=== PATIENT | male | born 1950 | race African-American/Black ===

== ENCOUNTER 2022-05-31 11:03 | Observation (INO) | payer MEDICARE, BC ==
[2022-05-31 12:07] LABS: #Monocytes 0.3 10x3/uL (0.0-1.1); #Neutrophils 3.6 10x3/uL (1.5-8.4); %Basophils 0.4 % (0.0-2.0); %Eosinophils 0.8 % (0.0-6.0); %Lymphocytes 16.1 % (18.0-47.0); %Monocytes 6.4 % (0.0-10.0); %Neutrophils 75.9 % (40.0-75.0); Hemoglobin 11.7 g/dL (13.5-17.5); Mean Corpuscular Hemoglobin 32.1 pg (27.0-33.0); Mean Corpuscular Volume 100.3 fl (81.2-95.1); Mean Platelet Volume 10.6 fl (7.4-10.4); Platelet Count 154 10x3/uL (150-450); RBC Distribution Width 15.3 % (11.5-14.5); Red Blood Cell (RBC) Count 3.65 10x6/uL (4.32-5.72); White Blood Cell (WBC) Count 4.7 10x3/uL (3.5-10.5)
[2022-05-31 12:25] LABS: ALT (SGPT) 52 U/L (8-55); AST (SGOT) 54 U/L (5-34); Albumin 3.3 g/dL (3.4-4.8); Alkaline Phosphatase 107 U/L (40-110); Anion Gap 24 mmol/L (10-20); BUN (Urea Nitrogen) 53 mg/dL (8.4-25.7); Bilirubin, Total 0.8 mg/dL (0.2-1.2); Calc. Creatinine Clearance 0 mL/min (70-130); Calcium 7.1 mg/dL (7.8-10.44); Carbon Dioxide 23 mmol/L (23-31); Chloride 91 mmol/L (98-107); Estimated GFR 2; Globulin 3.1 g/dL (2.4-3.5); Glucose 188 mg/dL (83-110); Lipase 129 U/L (8-78); Potassium 3.6 mmol/L (3.5-5.1); Protein, Total 6.4 g/dL (5.8-8.1); Sodium 134 mmol/L (136-145)
[2022-05-31] MEDS ORDERED: Cefepime 2 GM VIAL ONE (12:33)
[2022-05-31 12:43] LABS: CKMB 1.6 ng/mL (0-6.6)
[2022-05-31] MEDS ORDERED: NOREPINEPHRINE 8 MG/250 ML-D5W 0 ML ONE (13:23)
[2022-05-31 15:27] LABS: Lactic Acid 1.3 mmol/L (0.5-2.2)
[2022-05-31 16:02] LABS: BF Color Colorless; Body Fluid Source Peritoneal Fluid; Clarity Clear (Clear); Tube # 1
[2022-05-31] MEDS ORDERED: HumaLOG 300 UNITS/3 ML VIAL SC PRN ×2 (16:34)
[2022-05-31] MEDS ORDERED: Dextrose 5% in Water 1,000 ML IV PRN (16:34)
[2022-05-31] MEDS ORDERED: Dextrose 50% Abboject 50 ML SYRINGE SLOW IVP PRN (16:34)
[2022-05-31 16:59] LABS: BF Segmented Neutrophils 46 %; Eosinophils 2 %; Lymphocytes 52 %
[2022-05-31 17:57] VITALS: BMI 37.5
[2022-05-31] MEDS ORDERED: Vancomycin HCl 1 GM in Sodium Chloride 0.9% 250 ML 250 ML IVPB SCH (20:00)
[2022-05-31] MEDS ORDERED: Vancomycin 1 GM/200 ML BAG IVPB PRN (21:00)
[2022-05-31] MEDS: Brimonidine Tartrate 0.2% Ophth Soln 5 ml Bottle EA EYE SCH (22:00)
[2022-05-31] MEDS: Cholecalciferol 1,000 UNITS (25 MCG) TAB PO SCH (22:00)
[2022-05-31] MEDS: Calcitriol 0.25 MCG CAP PO SCH (22:00)
[2022-06-01] MEDS ORDERED: Guaifenesin DM 100-10/5 ML UDCUP PO PRN (03:38)
[2022-06-01 05:09] LABS: Anion Gap 18 mmol/L (10-20); BUN (Urea Nitrogen) 48 mg/dL (8.4-25.7); Calc. Creatinine Clearance 7 mL/min (70-130); Calcium 7.1 mg/dL (7.8-10.44); Carbon Dioxide 23 mmol/L (23-31); Chloride 96 mmol/L (98-107); Estimated GFR 3; Glucose 144 mg/dL (83-110); Potassium 3.2 mmol/L (3.5-5.1); Sodium 134 mmol/L (136-145)
[2022-06-01 05:24] LABS: #Eosinphils 0.1 10x3/uL (0.0-0.5); #Monocytes 0.4 10x3/uL (0.0-1.1); #Neutrophils 3.2 10x3/uL (1.5-8.4); %Basophils 0.2 % (0.0-2.0); %Eosinophils 1.6 % (0.0-6.0); %Lymphocytes 19.2 % (18.0-47.0); %Neutrophils 70.3 % (40.0-75.0); Hemoglobin 10.5 g/dL (13.5-17.5); Mean Corpuscular HGB CONC 31.8 g/dL (32.0-36.0); Mean Corpuscular Hemoglobin 31.9 pg (27.0-33.0); Mean Corpuscular Volume 100.3 fl (81.2-95.1); Mean Platelet Volume 10.3 fl (7.4-10.4); Platelet Count 136 10x3/uL (150-450); RBC Distribution Width 15.3 % (11.5-14.5); Red Blood Cell (RBC) Count 3.29 10x6/uL (4.32-5.72); White Blood Cell (WBC) Count 4.5 10x3/uL (3.5-10.5)
[2022-06-01] MEDS ORDERED: Levothyroxine Sodium 25 MCG TAB PO SCH (06:00)
[2022-06-01] MEDS ORDERED: FERRIC CITRATE 210 MG PO SCH (08:00)
[2022-06-01] MEDS ORDERED: Calcium Carbonate 500 MG ChewTAB PO SCH (08:00)
[2022-06-01] MEDS ORDERED: Sevelamer Carbonate 800 MG TAB PO SCH (08:00)
[2022-06-01] MEDS: Calcitriol 0.25 MCG CAP PO SCH (08:10)
[2022-06-01] MEDS: Brimonidine Tartrate 0.2% Ophth Soln 5 ml Bottle EA EYE SCH (08:10)
[2022-06-01] MEDS: Cholecalciferol 1,000 UNITS (25 MCG) TAB PO SCH (08:11)
[2022-06-01] MEDS ORDERED: Ezetimibe 10 MG TAB PO SCH (09:00)
[2022-06-01] MEDS ORDERED: Folic Acid/Vit B Comp W-C PO SCH (09:00)
[2022-06-01] MEDS ORDERED: Rosuvastatin 10 MG TAB PO SCH (09:00)
[2022-06-01] MEDS ORDERED: Stress 600 With Zinc 1 TAB PO SCH (09:00)
[2022-06-01] MEDS ORDERED: Aspirin 81 mg Enteric Coated Tablet PO SCH (09:00)
[2022-06-01] MEDS ORDERED: Famotidine/PF 20 mg/2ml Vial SLOW IVP SCH (09:00)
[2022-06-01 12:06] VITALS: BP 107/59; TEMP 97.6
[2022-06-01] MEDS ORDERED: Cefepime 0.5 GM, Admixture Fee 1 EACH in Sodium Chloride 0.9% 100 ML IVPB SCH (13:00)
== END 2022-06-01 13:13 | disposition home or self-care (01) ==
LOC: CSHERS 11:03 → CSHTELE 17:03
PROVIDERS: ADMIT Internal Medicine; ATTEND Internal Medicine
DX: I12.0 Hypertensive chronic kidney disease with stage 5 chronic kidney disease or end stage renal disease (principal); E11.22 Type 2 diabetes mellitus with diabetic chronic kidney disease; N18.6 End stage renal disease; D63.1 Anemia in chronic kidney disease; Q61.3 Polycystic kidney, unspecified; I95.1 Orthostatic hypotension; E78.5 Hyperlipidemia, unspecified; K21.9 Gastro-esophageal reflux disease without esophagitis; M10.9 Gout, unspecified; M06.9 Rheumatoid arthritis, unspecified; M79.9 Soft tissue disorder, unspecified; R74.02 Elevation of levels of lactic acid dehydrogenase [LDH]; U07.1 COVID-19; E66.9 Obesity, unspecified; Z68.37 Body mass index [BMI] 37.0-37.9, adult; Z79.82 Long term (current) use of aspirin; Z79.899 Other long term (current) drug therapy; Z88.1 Allergy status to other antibiotic agents; Z88.7 Allergy status to serum and vaccine; Z88.8 Allergy status to other drugs, medicaments and biological substances; Z98.890 Other specified postprocedural states
CPT/HCPCS: 71045; 80048; 80053; 82553; 82945; 82962 ×2; 83605; 83690; 84157; 84484; 85025 ×2; 87040; 89051; 93005; 93306; U0003; U0005; 36415; 36416; 87070; 87205; 90935; 90945; 96375; G0257; G0378; J0692; J3370; J7050; S0028

== ENCOUNTER 2023-08-02 11:49 | Outpatient (CLI) | payer MEDICARE, BC | END 2023-08-02 11:50 | disposition home or self-care (01) | LOC: CSHRAD 11:49 | PROVIDERS: ATTEND Internal Medicine Rheumatology | DX: M05.79 Rheumatoid arthritis with rheumatoid factor of multiple sites without organ or systems involvement (principal); M10.9 Gout, unspecified; M25.532 Pain in left wrist; M25.531 Pain in right wrist; M25.541 Pain in joints of right hand; M19.031 Primary osteoarthritis, right wrist; M19.042 Primary osteoarthritis, left hand; M19.041 Primary osteoarthritis, right hand ==

== ENCOUNTER 2023-12-03 13:09 | Outpatient (CLI) | payer MEDICARE, BC | END 2023-12-03 13:10 | disposition home or self-care (01) | LOC: CSHRAD 13:09 | PROVIDERS: ATTEND Plastic Surgery Surgery of the Hand | DX: M54.2 Cervicalgia (principal); M47.812 Spondylosis without myelopathy or radiculopathy, cervical region | CPT/HCPCS: 72040 ==